=== PATIENT | female | born 1995 | race Caucasian/White ===

== ENCOUNTER 2016-08-24 15:13 | Emergency (ER) | payer SELFPAY ==
[2016-08-24] MEDS ORDERED: NS 0.9% 1000 ML* 1,000 ML IV ONE (15:25)
[2016-08-24 16:52] LABS: ALT 12 U/L (7-52); AST 16 U/L (13-39); Albumin 4.2 g/dL (3.2-5.2); Alkaline Phosphatase 54 U/L (34-104); Anion Gap 4 mmol/L (2-11); BUN/Creatinine Ratio 14.5 (8-20); Blood Urea Nitrogen 11 mg/dL (6-24); CO2 Carbon Dioxide 23 mmol/L (22-32); Calcium 9.4 mg/dL (8.6-10.3); Chloride 108 mmol/L (101-111); EGFR African American 122.4 (>60); EGFR Non-African American 95.2 (>60); Glucose 84 mg/dL (70-100); Hematocrit 40 % (35-47); Hemoglobin 13.3 g/dl (12.0-16.0); Mean Corpuscular HGB Conc 33 g/dl (31-36); Mean Corpuscular Hemoglobin 30 pg (27-31); Mean Corpuscular Volume 91 fL (80-97); Mean Platelet Volume 9 um3 (7.4-10.4); Potassium 3.8 mmol/L (3.5-5.0); Red Blood Count 4.41 10^6/ul (4.0-5.4); Red Cell Distribution Width 13 % (10.5-15); Sodium 135 mmol/L (133-145); Total Protein 8.2 g/dL (6.4-8.9); White Blood Count 8.4 10^3/ul (3.5-10.8)
[2016-08-24 17:35] LABS: Urine Bacteria Absent (Absent); Urine Bilirubin Negative (Negative); Urine Glucose Negative (Negative); Urine Nitrite Negative (Negative)
[2016-08-24] MEDS ORDERED: Nitrofurantoin Macrocrystals* 100 MG CAP PO ONE (17:55)
--- NOTE | 2016-08-24 18:07 | ED ---
Jose Garrido Adam, scribed for Cece Armendariz MD on 08/24/16 at 1527 . Syncope/Near Syncope - HPI Summary HPI Summary: Pt is a 20 year old female presenting after an episode of syncope. She states that she fainted after taking a shower at 13:15 this afternoon. She states that her boyfriend found her unconscious slumped over the toilet 45 minutes after she lost consciousness. She had felt dizzy while she was in the shower and she felt tired after she regained consciousness. Pt states that she has had similar episodes involving lightheadedness and darkening vision but has never had syncope with LOC before. She denies CP, HUERTA, and urinary/bowel sx. She denies any PMHx, surgical Hx, or FMHx. No PMHx or FMHx of epilepsy. urine concerning for uti given fainting will start abx - History Of Current Complaint Chief Complaint: EDSyncope Time Seen by Provider: 08/24/16 15:24 Hx Obtained From: Patient Onset/Duration: Sudden Onset, Resolved Timing: Intermittent Episode Lasting - Minutes Context: Unwitnessed, Loss Of Consciousness Activity At Onset: Other - Stepping out of shower Aggravating Factor(s): Other - Dizziness in shower Alleviating Factor(s): Spontaneous Resolution Associated Signs And Symptoms: Dizzy - Allergies/Home Medications Allergies/Adverse Reactions: Allergies Allergy/AdvReac Type Severity Reaction Status Date / Time Diphenhydramine Allergy Severe Rash Verified 08/24/16 15:29 [From Benadryl] PMH/Surg Hx/FS Hx/Imm Hx Previously Healthy: Yes Endocrine/Hematology History: Denies: Hx Diabetes, Hx Thyroid Disease Cardiovascular History: Denies: Hx Congestive Heart Failure, Hx Hypertension Respiratory History: Denies: Hx Asthma, Hx Chronic Obstructive Pulmonary Disease (COPD) GI History: Denies: Hx Ulcer History: Denies: Hx Renal Disease Infectious Disease History: No Infectious Disease History: Denies: Hx Hepatitis, Hx Human Immunodeficiency Virus (HIV), Traveled Outside the US in Last 30 Days - Family History Known Family History: Positive: None, Other - Negative: Epilepsy - Social History Occupation: Employed Full-time Lives: Alone Alcohol Use: None Hx Substance Use: No Substance Use Type: Reports: None Hx Tobacco Use: No Smoking Status (MU): Never Smoked Tobacco Review of Systems Negative: Fever Negative: Chest Pain Genitourinary: Negative Neurological: Other - Dizziness Positive: Syncope. Negative: Headache All Other Systems Reviewed And Are Negative: Yes Physical Exam Triage Information Reviewed: Yes Vital Signs On Initial Exam: Initial Vitals Temp Pulse Resp BP Pulse Ox 97.6 F 48 16 113/56 100 08/24/16 15:18 08/24/16 15:18 08/24/16 15:18 08/24/16 15:18 08/24/16 15:18 Vital Signs Reviewed: Yes Appearance: Positive: Well-Appearing, No Pain Distress Skin: Positive: Warm, Skin Color Reflects Adequate Perfusion, Dry Eyes: Positive: EOMI, NEHEMIAS ENT: Positive: Pharynx normal, TMs normal Neck: Positive: Supple, Nontender Respiratory/Lung Sounds: Positive: Clear to Auscultation, Breath Sounds Present. Negative: Rales, Rhonchi, Wheezes Cardiovascular: Positive: RRR. Negative: Murmur, Rub Abdomen Description: Positive: Nontender, Soft. Negative: Distended, Guarding Bowel Sounds: Positive: Present Musculoskeletal: Positive: Strength/ROM Intact. Negative: Edema Left, Edema Right Neurological: Positive: Sensory/Motor Intact, Alert, Oriented to Person Place, Time, CN Intact II-III Psychiatric: Positive: Affect/Mood Appropriate Diagnostics - Vital Signs Vital Signs Temp Pulse Resp BP Pulse Ox 08/24/16 15:18 97.6 F 48 16 113/56 100 - Laboratory Lab Results: Lab Results 08/24/16 08/24/16 08/24/16 Range/Units 16:25 16:25 17:15 WBC 8.4 (3.5-10.8) 10^3/ul RBC 4.41 (4.0-5.4) 10^6/ul Hgb 13.3 (12.0-16.0) g/dl Hct 40 (35-47) % MCV 91 (80-97) fL MCH 30 (27-31) pg MCHC 33 (31-36) g/dl RDW 13 (10.5-15) % Plt Count 219 (150-450) 10^3/ul MPV 9 (7.4-10.4) um3 Neut % (Auto) 78.9 (38-83) % Lymph % (Auto) 14.4 L (25-47) % [place] % (Auto) 5.1 (1-9) % Eos % (Auto) 1.2 (0-6) % Baso % (Auto) 0.4 (0-2) % Absolute Neuts (auto) 6.6 (1.5-7.7) 10^3/ul Absolute Lymphs (auto) 1.2 (1.0-4.8) 10^3/ul Absolute Monos (auto) 0.4 (0-0.8) 10^3/ul Absolute Eos (auto) 0.1 (0-0.6) 10^3/ul Absolute Basos (auto) 0 (0-0.2) 10^3/ul Absolute Nucleated RBC 0 10^3/ul Nucleated RBC % 0 Sodium 135 (133-145) mmol/L Potassium 3.8 (3.5-5.0) mmol/L Chloride 108 (101-111) mmol/L Carbon Dioxide 23 (22-32) mmol/L Anion Gap 4 (2-11) mmol/L BUN 11 (6-24) mg/dL Creatinine 0.76 (0.51-0.95) mg/dL Est GFR ( Amer) 122.4 (>60) Est GFR (Non-Af Amer) 95.2 (>60) BUN/Creatinine Ratio 14.5 (8-20) Glucose 84 (70-100) mg/dL Calcium 9.4 (8.6-10.3) mg/dL Total Bilirubin 0.40 (0.2-1.0) mg/dL AST 16 (13-39) U/L ALT 12 (7-52) U/L Alkaline Phosphatase 54 (34-104) U/L Total Protein 8.2 (6.4-8.9) g/dL Albumin 4.2 (3.2-5.2) g/dL Globulin 4.0 (2-4) g/dL Albumin/Globulin Ratio 1.1 (1-3) Beta HCG, Quant < 0.60 mIU/mL Urine Color [place] Urine Appearance Cloudy Urine pH 5.0 (5-9) Ur Specific [place] 1.028 (1.010-1.030) Urine Protein 2+(100 mg/dl) H (Negative) Urine Ketones Negative (Negative) Urine Blood 3+ H (Negative) Urine Nitrate Negative (Negative) Urine Bilirubin Negative (Negative) Urine Urobilinogen Negative (Negative) Ur Leukocyte Esterase 1+ H (Negative) Urine WBC (Auto) 2+(11-20/hpf) H (Absent) Urine RBC (Auto) 3+(>10/hpf) H (Absent) Ur Squamous Epith Cells Present H (Absent) Urine Bacteria Absent (Absent) Urine Glucose Negative (Negative) Result Diagrams: 08/24/16 16:25 08/24/16 16:25 Lab Statement: Any lab studies that have been ordered have been reviewed, and results considered in the medical decision making process. - EKG 15:26 Cardiac Rate: Bradycardia - 46 BPM EKG Rhythm: Sinus Bradycardia Course/Dx - Diagnoses Provider Diagnoses: Syncope, UTI (urinary tract infection) Discharge - Discharge Plan Condition: Stable Disposition: HOME Prescriptions: Nitrofurantoin Monohyd Macro [Macrobid] 100 mg PO BID #8 cap Patient Education Materials: Syncope (ED), Urinary Tract Infection in Women (ED ) Referrals: Kaur Minaya RN [Primary Care Provider] - Additional Instructions: Follow up with Kaur Mcdaniels. The documentation as recorded by the Jose garcia Adam accurately reflects the service I personally performed and the decisions made by , Cece Armendariz MD.
[2016-08-24 18:35] VITALS: BP 120/62
== END 2016-08-24 18:34 | disposition home or self-care (01) ==
LOC: ED 15:13
DX: R55 Syncope and collapse (principal); N39.0 Urinary tract infection, site not specified; R42 Dizziness and giddiness
CPT/HCPCS: 36415; 80053; 81003; 81015; 84702; 85025; 87086; 93005; 99283; A9270-GY

== ENCOUNTER 2016-08-26 21:22 | Emergency (ER) | payer SELFPAY ==
[2016-08-26 21:34] VITALS: BP 110/57
[2016-08-26] MEDS ORDERED: Tetan/Diph/Pertus SYR(Tdap)* 0.5 ML SYR(BOOSTRIX) use SYR IM ONE (22:12)
[2016-08-26] MEDS ORDERED: Doxycycline (NF) 100 MG TAB PO ONE (22:13)
--- NOTE | 2016-08-27 03:36 | ED ---
Edilson Garrido Rebecca, scribed for Ayo Deshpande on 08/26/16 at 2151 . Bite Injury/Animal - HPI Summary HPI Summary: Pt is a 20 y/o F who presents to ED c/o tick bite. Pt presents with the tick still attached to the L shoulder. Bite occurred at 2100 tonight. Sx aggravated and alleviated by nothing. Denies any other sx including any pain. Unsure of last Tetanus date. - History of Current Complaint Chief Complaint: EDAnimalBite Stated Complaint: TICK ON SHOULDER Time Seen by Provider: 08/26/16 21:45 Hx Obtained From: Patient Hx Last Menstrual Period: 03/01 Onset of Injury: Happened hours ago - 1 hour ago Type of Bite: Wild Animal - Tick Severity Currently: None Pain Intensity: 0 Pain Scale Used: 0-10 Numeric Aggravating Factor(s): Nothing Alleviating Factor(s): Nothing Associated Signs And Symptoms: Positive: Negative - Allergies/Home Medications Allergies/Adverse Reactions: Allergies Allergy/AdvReac Type Severity Reaction Status Date / Time Diphenhydramine Allergy Severe Rash Verified 08/24/16 15:29 [From Benadryl] PMH/Surg Hx/FS Hx/Imm Hx Previously Healthy: Yes Endocrine/Hematology History: Denies: Hx Diabetes, Hx Thyroid Disease Cardiovascular History: Denies: Hx Congestive Heart Failure, Hx Hypertension Respiratory History: Denies: Hx Asthma, Hx Chronic Obstructive Pulmonary Disease (COPD) GI History: Denies: Hx Ulcer History: Denies: Hx Renal Disease Infectious Disease History: No Infectious Disease History: Denies: Hx Hepatitis, Hx Human Immunodeficiency Virus (HIV), Traveled Outside the US in Last 30 Days - Family History Known Family History: Positive: Other - Negative: Epilepsy - Social History Alcohol Use: None Hx Substance Use: No Substance Use Type: Reports: None Hx Tobacco Use: No Smoking Status (MU): Never Smoked Tobacco Review of Systems Positive: Other - Denies any pain Positive: Other - Tick in the L shoulder All Other Systems Reviewed And Are Negative: Yes Physical Exam Triage Information Reviewed: Yes Vital Signs On Initial Exam: Initial Vitals Temp Pulse Resp BP Pulse Ox 98.3 F 59 16 110/57 99 08/26/16 21:30 08/26/16 21:30 08/26/16 21:30 08/26/16 21:30 08/26/16 21:30 Vital Signs Reviewed: Yes Appearance: Positive: Well-Appearing, No Pain Distress Skin: Positive: Warm, Skin Color Reflects Adequate Perfusion, Dry, Other - Tick in the L shoulder (removed with tick remover) Head/Face: Positive: Normal Head/Face Inspection Eyes: Positive: EOMI, NEHEMIAS ENT: Positive: Normal ENT inspection Neck: Positive: Supple, Nontender Respiratory/Lung Sounds: Positive: Clear to Auscultation, Breath Sounds Present Cardiovascular: Positive: RRR, Pulses are Symmetrical in both Upper and Lower Extremities Abdomen Description: Positive: Nontender, Soft Bowel Sounds: Positive: Present Musculoskeletal: Positive: Normal, Strength/ROM Intact Neurological: Positive: Normal, Sensory/Motor Intact, Alert, Oriented to Person Place, Time Diagnostics - Vital Signs Vital Signs Temp Pulse Resp BP Pulse Ox 08/26/16 21:30 98.3 F 59 16 110/57 99 - Laboratory Lab Statement: Any lab studies that have been ordered have been reviewed, and results considered in the medical decision making process. Bite Injury Course/Dx - Course Assessment/Plan: Pt is a 20 y/o F who presents to ED with a tick in her L shoulder since 1 hour [employer]. Denies any other sx. Tick is removed with tick removers. Unsure of last Tetanus vaccine. Pt will be D/C to home with a dx of tick bite. - Diagnoses Provider Diagnosis: Tick bite Discharge - Discharge Plan Condition: Stable Disposition: HOME Patient Education Materials: Tick Bite (ED) Referrals: Arslan ALVAREZ PHARMACY AIDE,Kaur [Primary Care Provider] - 3 Days (Follow up with your primary care physician in the next 3 days. ) The documentation as recorded by the Edilson garcia Rebecca accurately reflects the service I personally performed and the decisions made by Jeramy chatman Emmanuel.
== END 2016-08-26 22:30 | disposition home or self-care (01) ==
LOC: ED 21:22
DX: S40.262A Insect bite (nonvenomous) of left shoulder, initial encounter (principal); W57.XXXA Bitten or stung by nonvenomous insect and other nonvenomous arthropods, initial encounter; Y93.9 Activity, unspecified; Y92.9 Unspecified place or not applicable; Y99.9 Unspecified external cause status
CPT/HCPCS: 90471; 99282

== ENCOUNTER 2016-09-16 06:36 | Emergency (ER) | payer SELFPAY ==
[2016-09-16] MEDS ORDERED: Ondansetron INJ* 2 MG/ML VIAL IV ONE (06:53)
[2016-09-16] MEDS ORDERED: NS 0.9% 1000 ML* 3,000 ML IV ONE (06:53)
[2016-09-16 07:13] LABS: Hematocrit 39 % (35-47); Hemoglobin 13.3 g/dl (12.0-16.0); Mean Corpuscular HGB Conc 34 g/dl (31-36); Mean Corpuscular Hemoglobin 31 pg (27-31); Mean Corpuscular Volume 89 fL (80-97); Mean Platelet Volume 8 um3 (7.4-10.4); Red Blood Count 4.35 10^6/ul (4.0-5.4); Red Cell Distribution Width 14 % (10.5-15); White Blood Count 5.2 10^3/ul (3.5-10.8)
[2016-09-16 07:30] LABS: ALT 12 U/L (7-52); AST 14 U/L (13-39); Albumin 3.9 g/dL (3.2-5.2); Alkaline Phosphatase 54 U/L (34-104); Anion Gap 7 mmol/L (2-11); BUN/Creatinine Ratio 17.9 (8-20); Blood Urea Nitrogen 14 mg/dL (6-24); C Reactive Protein 1.72 mg/L (< 5.00); CO2 Carbon Dioxide 23 mmol/L (22-32); Calcium 8.9 mg/dL (8.6-10.3); Chloride 106 mmol/L (101-111); EGFR African American 118.8 (>60); EGFR Non-African American 92.4 (>60); Globulin 3.7 g/dL (2-4); Glucose 95 mg/dL (70-100); Lipase 41 U/L (11.0-82.0); Potassium 3.9 mmol/L (3.5-5.0); Sodium 136 mmol/L (133-145); Total Protein 7.6 g/dL (6.4-8.9)
[2016-09-16 11:14] VITALS: BP 93/53
--- NOTE | 2016-09-19 09:41 | ED ---
Albina Garrido Matthew, scribed for Gómez Charles MD on 09/16/16 at 0747 . Abdominal Pain/Female - HPI Summary HPI Summary: A 20 y/o female presents to the ED diffuse abdominal pain with eating since 3 days ago. The pain is rated 5/10 in severity, and described as a squeezing pain. Associated symptoms include vomiting, diarrhea - watery, and chills. The patient denies diaphoresis, blood w/ stool, dizziness and lightheadedness. She is unsure if she's had a fever. Hx of syncope while showering about a month ago. The patient works at [employer]. The patient's co-workers have been ill recently. - History of Current Complaint Chief Complaint: EDNauseaVomitDiarrh Stated Complaint: VOMITING Time Seen by Provider: 09/16/16 07:36 Hx Obtained From: Patient Hx Last Menstrual Period: 03/01 ?: No Timing: Constant Severity Initially: Moderate Severity Currently: Moderate Pain Intensity: 5 Pain Scale Used: 0-10 Numeric Location: Diffuse Radiates: No Character: Other: - Squeezing Aggravating Factor(s): Food Alleviating Factor(s): Nothing Associated Signs and Symptoms: Positive: Nausea, Vomiting, Diarrhea. Negative: Diaphoresis, Blood in Stool, Urinary Symptoms Allergies/Adverse Reactions: Allergies Allergy/AdvReac Type Severity Reaction Status Date / Time Diphenhydramine Allergy Severe Rash Verified 08/24/16 15:29 [From Benadryl] PMH/Surg Hx/FS Hx/Imm Hx Endocrine/Hematology History: Denies: Hx Diabetes, Hx Thyroid Disease Cardiovascular History: Denies: Hx Congestive Heart Failure, Hx Hypertension Respiratory History: Denies: Hx Asthma, Hx Chronic Obstructive Pulmonary Disease (COPD) GI History: Denies: Hx Ulcer History: Denies: Hx Renal Disease Infectious Disease History: No Infectious Disease History: Denies: Hx Hepatitis, Hx Human Immunodeficiency Virus (HIV), Traveled Outside the [place] in Last 30 Days - Family History Known Family History: Positive: Other - Negative: Epilepsy - Social History Alcohol Use: None Hx Substance Use: No Substance Use Type: Reports: None Hx Tobacco Use: No Smoking Status (MU): Never Smoked Tobacco Review of Systems Constitutional: Other Negative: Fever, Skin Diaphoresis Eyes: Negative ENT: Negative Negative: Sore Throat Cardiovascular: Negative Negative: Chest Pain Respiratory: Negative Negative: Shortness Of Breath, Cough Positive: Abdominal Pain - Diffuse, Vomiting, Diarrhea, Nausea Genitourinary: Negative Negative: dysuria, hematuria Musculoskeletal: Negative Negative: Myalgia, Edema Skin: Negative Negative: Rash Neurological: Negative Negative: Weakness Psychological: Normal All Other Systems Reviewed And Are Negative: Yes Physical Exam Triage Information Reviewed: Yes Vital Signs On Initial Exam: Initial Vitals Temp Pulse Resp BP Pulse Ox 96.9 F 59 18 114/57 99 09/16/16 06:41 09/16/16 06:41 09/16/16 06:41 09/16/16 06:41 09/16/16 06:41 Vital Signs Reviewed: Yes Appearance: Positive: Well-Appearing, Well-Nourished. Negative: No Pain Distress Skin: Positive: Warm, Dry Head/Face: Positive: Other - Normocephalic; Atraumatic Eyes: Positive: Conjunctiva Clear ENT: Positive: Normal ENT inspection Neck: Positive: Other: - Rull ROM Respiratory/Lung Sounds: Positive: Other - Normal Effort. Negative: Rales, Rhonchi, Stridor, Tracheal Deviation, Wheezes Cardiovascular: Positive: RRR, Other - Heart sounds normal; Intact distal pulses ; The pedal pulses are 2+ and symmetric. Radial pulses are 2+ and symmetric.. Negative: Murmur Abdomen Description: Positive: Nontender, Soft, Other: - No Rebound. Negative: Distended, Guarding Bowel Sounds: Positive: Present Musculoskeletal: Negative: Edema Left, Edema Right Neurological: Positive: Alert, Oriented to Person Place, Time Psychiatric: Positive: Affect/Mood Appropriate - [place] Coma Scale Coma Scale Total: 15 Diagnostics - Vital Signs Vital Signs Temp Pulse Resp BP Pulse Ox 09/16/16 07:30 61 86/48 97 09/16/16 07:19 58 81/43 98 09/16/16 07:14 54 98 09/16/16 07:13 86/41 09/16/16 06:41 96.9 F 59 18 114/57 99 - Laboratory Lab Results: Lab Results 09/16/16 09/16/16 09/16/16 Range/Units 06:58 06:58 06:58 WBC 5.2 (3.5-10.8) 10^3/ul RBC 4.35 (4.0-5.4) 10^6/ul Hgb 13.3 (12.0-16.0) g/dl Hct 39 (35-47) % MCV 89 (80-97) fL MCH 31 (27-31) pg MCHC 34 (31-36) g/dl RDW 14 (10.5-15) % Plt Count 241 (150-450) 10^3/ul MPV 8 (7.4-10.4) um3 Neut % (Auto) 51.6 (38-83) % Lymph % (Auto) 33.5 (25-47) % [place] % (Auto) 9.1 H (1-9) % Eos % (Auto) 4.2 (0-6) % Baso % (Auto) 1.6 (0-2) % Absolute Neuts (auto) 2.7 (1.5-7.7) 10^3/ul Absolute Lymphs (auto) 1.7 (1.0-4.8) 10^3/ul Absolute Monos (auto) 0.5 (0-0.8) 10^3/ul Absolute Eos (auto) 0.2 (0-0.6) 10^3/ul Absolute Basos (auto) 0.1 (0-0.2) 10^3/ul Absolute Nucleated RBC 0 10^3/ul Nucleated RBC % 0.1 Sodium 136 (133-145) mmol/L Potassium 3.9 (3.5-5.0) mmol/L Chloride 106 (101-111) mmol/L Carbon Dioxide 23 (22-32) mmol/L Anion Gap 7 (2-11) mmol/L BUN 14 (6-24) mg/dL Creatinine 0.78 (0.51-0.95) mg/dL Est GFR ( Amer) 118.8 (>60) Est GFR (Non-Af Amer) 92.4 (>60) BUN/Creatinine Ratio 17.9 (8-20) Glucose 95 (70-100) mg/dL Lactic Acid 0.7 (0.5-2.0) mmol/L Calcium 8.9 (8.6-10.3) mg/dL Total Bilirubin 0.30 (0.2-1.0) mg/dL AST 14 (13-39) U/L ALT 12 (7-52) U/L Alkaline Phosphatase 54 (34-104) U/L C-Reactive Protein 1.72 (< 5.00) mg/L Total Protein 7.6 (6.4-8.9) g/dL Albumin 3.9 (3.2-5.2) g/dL Globulin 3.7 (2-4) g/dL Albumin/Globulin Ratio 1.1 (1-3) Lipase 41 (11.0-82.0) U/L Beta HCG, Quant < 0.60 mIU/mL Result Diagrams: 09/16/16 06:58 09/16/16 06:58 Lab Statement: Any lab studies that have been ordered have been reviewed, and results considered in the medical decision making process. Abdominal Pain Fem Course/Dx - Course Course Of Treatment: A 20 y/o female presents to the ED diffuse abdominal pain with eating since 3 days ago. The pain is rated 5/10 in severity, and described as a squeezing pain. Associated symptoms include vomiting, diarrhea - watery, and chills. The patient denies diaphoresis, blood w/ stool, dizziness and lightheadedness. Labs were reviewed. In the ED course, she was given 3L IV fluids and Zofran. She will be discharged home and follow-up with her PCP before returning to work. - Diagnoses Provider Diagnoses: GASTROENTERITIS Discharge - Discharge Plan Condition: Stable Disposition: HOME Prescriptions: Ondansetron ODT TAB* [Zofran 4 MG Odt TAB*] 4 mg PO Q8H PRN #9 tab.odt PRN Reason: Nausea/Vomiting Patient Education Materials: Gastroenteritis (ED) Forms: *Work Release Referrals: Kaur Minaay RN [Primary Care Provider] - 3 Days Additional Instructions: Please follow-up with your primary care physician in 3 days. You need to be cleared by your primary care physician before returning to work. Return to the emergency department for changing or worsening symptoms. The documentation as recorded by the Albina garcia Matthew accurately reflects the service I personally performed and the decisions made by me, Gómez Charles MD.
== END 2016-09-16 10:23 | disposition home or self-care (01) ==
LOC: ED 06:36
DX: K52.9 Noninfective gastroenteritis and colitis, unspecified (principal); R11.2 Nausea with vomiting, unspecified; R19.7 Diarrhea, unspecified; R10.9 Unspecified abdominal pain
CPT/HCPCS: 36415; 80053; 83605; 83690; 84702; 85025; 86140; 96374; 96375; 99282; J2405

== ENCOUNTER 2018-07-14 20:55 | Emergency (ER) | payer BC, OTHER ==
[2018-07-14] MEDS ORDERED: Famotidine IV* 10 MG/ML 2 ML (20 mg) IV SLOW PU ONE (21:24)
[2018-07-14] MEDS ORDERED: Metoclopramide IV* 5 MG/ML 2 ML VIAL IV SLOW PU ONE (21:24)
--- NOTE | 2018-07-14 21:35 | ED ---
- HPI Summary HPI Summary: A 22 y/o female accompanied by family presents to the ED c/o vomiting for the past week. As per triage, "Pt is 5 weeks , unable to keep anything down ". According to the family, the patient is 5 weeks and cannot keep anything down. She has been vomiting for the past week. As per patient, her LKMP was June 04 2018. She confirmed the with a test and she went to her primary care provider. This is the patient's 2nd , she had a miscarriage in 2010. Patient noted that she had some "spotting" vaginal bleeding when she wiped with toilet paper. Patient further noted that her abdominal is diffusely sensitive. Patient has a OB appointment on August 09, 2018. Patient is blood type AB-. - History of Current Complaint Chief Complaint: EDOBProblems Stated Complaint: 5 WKS PREG/VOMITING Time Seen by Provider: 07/14/18 21:17 Hx Obtained From: Patient, Family/Emergency Doctor - FAMILY Chief Complaint: Other: - VOMITING FOR PAST WEEK. Onset/Duration: Started Days Ago, Still Present Timing: Intermittent Current Severity: None Pain Intensity: 0 Location of Pain: None Character: None Aggravating Factors: Nothing Alleviating Factors: Nothing Associated Signs and Symptoms: Positive: Negative - Assessment Hx Now: No - Allergies/Home Medications Allergies/Adverse Reactions: Allergies Allergy/AdvReac Type Severity Reaction Status Date / Time diphenhydramine Allergy Rash Verified 07/14/18 22:07 [From Benadryl] Home Medications: Home Medications [id number]/Iron Fum/Folic/Docusate [ 19] 1 tab PO DAILY 07/14/18 [History Confirmed 07/14/18] PMH/Surg Hx/FS Hx/Imm Hx Endocrine/Hematology History: Denies: Hx Diabetes, Hx Thyroid Disease Cardiovascular History: Denies: Hx Congestive Heart Failure, Hx Hypertension Respiratory History: Denies: Hx Asthma, Hx Chronic Obstructive Pulmonary Disease (COPD) GI History: Denies: Hx Ulcer History: Denies: Hx Renal Disease - Surgical History Surgery Procedure, Year, and Place: none Infectious Disease History: No Infectious Disease History: Denies: Hx Hepatitis, Hx Human Immunodeficiency Virus (HIV), Traveled Outside the [place] in Last 30 Days - Family History Known Family History: Positive: Other - Negative: Epilepsy - Social History Alcohol Use: None Hx Substance Use: No Substance Use Type: Reports: None Hx Tobacco Use: No Smoking Status (MU): Never Smoked Tobacco Review of Systems Negative: Fever Positive: Abdominal Pain Positive: discharge - BLEEDING All Other Systems Reviewed And Are Negative: Yes Physical Exam - Summary Physical Exam Summary: VITAL SIGNS: Reviewed. GENERAL: Patient is a well-developed and nourished female who is lying comfortable in the stretcher. Patient is not in any acute respiratory distress. HEAD AND FACE: No signs of trauma. No ecchymosis, hematomas or skull depressions. No sinus tenderness. EYES: PERRLA, EOMI x 2, No injected conjunctiva, no nystagmus. EARS: Hearing grossly intact. Ear canals and tympanic membranes are within normal limits. MOUTH: Oropharynx within normal limits. NECK: Supple, trachea is midline, no adenopathy, no JVD, no carotid bruit, no c- spine tenderness, neck with full ROM. CHEST: Symmetric, no tenderness at palpation LUNGS: Clear to auscultation bilaterally. No wheezing or crackles. CVS: Regular rate and rhythm, S1 and S2 present, no murmurs or gallops appreciated. ABDOMEN: Soft, lower abdominal tenderness. No signs of distention. No rebound no guarding, and no masses palpated. Bowel sounds are normal. EXTREMITIES: FROM in all major joints, no edema, no cyanosis or clubbing. NEURO: Alert and oriented x 3. No acute neurological deficits. Speech is normal and follows commands. SKIN: Dry and warm - Physical Exam Triage Information Reviewed: Yes Vital Signs Reviewed: Yes Diagnostics - Vital Signs Vital Signs Temp Pulse Resp BP Pulse Ox 07/14/18 20:56 98.7 F 64 16 109/49 100 - Laboratory Result Diagrams: 07/14/18 20:47 07/14/18 20:47 Lab Statement: Any lab studies that have been ordered have been reviewed, and results considered in the medical decision making process. - Ultrasound No standard instances Ultrasound Interpretation Completed By: Radiologist Summary of Ultrasound Findings: TRANSVAGINAL US: Viable intrauterine with an ultrasound age of 6 weeks 0 days which correlates to an DAISY of 2018 which will be used for the clinical dates. ED PHYSICIAN REVIEWED THIS RADIOLOGY REPORT. Course/Dx - Course Course Of Treatment: A 22 y/o female accompanied by family presents to the ED c/ o vomiting for the past week. Physical examination findings significant for lower abdominal tenderness. A Transvaginal US revealed viable intrauterine with an ultrasound age of 6 weeks 0 days which correlates to an DAISY of 03/06/2019 which will be used for the clinical dates. No significant laboratory abnormalities were found. In the ED course, the patient received Reglan, Compazine, Vitamin B6, and Pepcid. Patient will be discharged with a diagnosis of vomiting, threatened miscarriage, and vomiting. Patient is to follow up with OB in 1-2 days. Patient is to return to ED for any new or worsening symptoms. Patient is agreeable with this plan. - Diagnoses Provider Diagnoses: Threatened miscarriage, Vomiting, - Provider Notifications Discussed Care Of Patient With: Radha Bowman Time Discussed With Above Provider: 23:58 Instructed by Provider To: Other - Recommends discharging patient with B6 and Compazine Discharge - Sign-Out/Discharge Documenting (check all that apply): Patient Departure - DISCHARGE - Discharge Plan Condition: Stable Disposition: HOME Prescriptions: Prochlorperazine SUPP* [Compazine Supp*] 25 mg .SEE ORDER Q6H PRN #20 supp PRN Reason: Nausea/Vomiting Pyridoxine HCl (Vitamin B6) [Vitamin B-6] 25 mg PO TID #30 tab Forms: *Work Release Referrals: Arslan MONCADA,Kaur [Nurse Practitioner] - 2 Days Radha Bowman MD [Medical Doctor] - 2 Days Additional Instructions: FOLLOW UP WITH OB IN 1-2 DAYS. RETURN TO ED FOR ANY NEW OR WORSENING SYMPTOMS. - Attestation Statements Document Initiated by Scribe: Yes Documenting Scribe: Uziel Cash Provider For Whom Scribe is Documenting (Include Credential): Jonh Cason MD Scribe Attestation: Uziel Garrido, scribed for Jonh Cason MD on 07/15/18 at 0047. Status of Scribe Document: Ready
[2018-07-14] MEDS: Lactated Ringers 1000 ML Bag* 1,000 ML IV SCH ×2 (21:40→21:41)
[2018-07-14 21:50] LABS: ABS Basophils 0 10^3/ul (0-0.2); ABS Eosinophils 0 10^3/ul (0-0.6); ABS Lymphocytes 1.4 10^3/ul (1.0-4.8); ABS Monocytes 0.5 10^3/ul (0-0.8); ABS Neutrophils 7.5 10^3/ul (1.5-7.7); ABS Nucleated RBC 0 10^3/ul; Eosinophil % 0.2 %; Hematocrit 39 % (35-47); Hemoglobin 13.5 g/dl (12.0-16.0); Lymphocyte % 14.5 %; Mean Corpuscular HGB Conc 34 g/dl (31-36); Mean Corpuscular Hemoglobin 31 pg (27-31); Mean Corpuscular Volume 91 fL (80-97); Mean Platelet Volume 8.1 fL (7.4-10.4); Nucleated Red Blood Cells % 0; Platelet Count 255 10^3/ul (150-450); Red Blood Count 4.34 10^6/ul (4.00-5.40); Red Cell Distribution Width 14 % (10.5-15); White Blood Count 9.4 10^3/ul (3.5-10.8)
[2018-07-14 22:04] LABS: Albumin 4.4 g/dL (3.2-5.2); Albumin/Globulin Ratio 1.4 (1-3); BUN/Creatinine Ratio 12.9 (8-20); Calcium 9.6 mg/dL (8.6-10.3); EGFR African American 143.1 (>60); EGFR Non-African American 118.3 (>60); Globulin 3.2 g/dL (2-4); Potassium 3.5 mmol/L (3.5-5.0); Total Bilirubin 0.6 mg/dL (0.2-1.0); Total Protein 7.6 g/dL (6.4-8.9)
[2018-07-14] MEDS ORDERED: Pyridoxine TAB* 50 MG PO ONE (23:58)
[2018-07-14] MEDS ORDERED: PROCHLORPERAZINE INJ 5 MG/ML 2 ML VIAL IV ONE (23:59)
[2018-07-15 00:51] VITALS: BP 109/60
[2018-07-15] MEDS ORDERED: RHO D Immune Globulin (HUMAN)* 300 MCG = 1,500 I.U. INJ IM ONE (01:00)
== END 2018-07-15 00:52 | disposition home or self-care (01) ==
LOC: ED 20:55
DX: O20.0 Threatened abortion (principal); Z3A.01 Less than 8 weeks gestation of pregnancy; O21.9 Vomiting of pregnancy, unspecified
CPT/HCPCS: 36415; 76817; 80053; 84702; 85025; 86850; 86900; 86901; 96374; 96375; 99284; A9270-GY; J0780; J2765; J2790

== ENCOUNTER 2018-07-19 10:20 | Emergency (ER) | payer OTHER ==
[2018-07-19] MEDS ORDERED: Famotidine IV* 10 MG/ML 2 ML (20 mg) IV SLOW PU ONE (11:01)
[2018-07-19] MEDS ORDERED: NS 0.9% 1000 ML* 1,000 ML IV ONE (11:01)
[2018-07-19] MEDS ORDERED: PROCHLORPERAZINE INJ 5 MG/ML 2 ML VIAL IV ONE (11:02)
[2018-07-19 11:21] LABS: ABS Basophils 0 10^3/ul (0-0.2); ABS Eosinophils 0.1 10^3/ul (0-0.6); ABS Lymphocytes 1.2 10^3/ul (1.0-4.8); ABS Monocytes 0.4 10^3/ul (0-0.8); ABS Neutrophils 5.8 10^3/ul (1.5-7.7); ABS Nucleated RBC 0 10^3/ul; Eosinophil % 0.8 %; Hematocrit 41 % (35-47); Hemoglobin 14.4 g/dl (12.0-16.0); Lymphocyte % 16.2 %; Mean Corpuscular HGB Conc 35 g/dl (31-36); Mean Corpuscular Hemoglobin 32 pg (27-31); Mean Corpuscular Volume 91 fL (80-97); Mean Platelet Volume 7.7 fL (7.4-10.4); Nucleated Red Blood Cells % 0; Platelet Count 245 10^3/ul (150-450); Red Blood Count 4.56 10^6/ul (4.00-5.40); Red Cell Distribution Width 14 % (10.5-15); White Blood Count 7.4 10^3/ul (3.5-10.8)
[2018-07-19 11:50] LABS: BUN/Creatinine Ratio 17.5 (8-20); Calcium 9.6 mg/dL (8.6-10.3); EGFR Non-African American 116.1 (>60); Globulin 3.9 g/dL (2-4); Magnesium 1.9 mg/dL (1.9-2.7); Potassium 3.7 mmol/L (3.5-5.0); Total Bilirubin 0.6 mg/dL (0.2-1.0); Total Protein 7.9 g/dL (6.4-8.9)
--- NOTE | 2018-07-19 12:26 | ED ---
- HPI Summary HPI Summary: ongoing n/v w/ hyperemiesis gravidarum. Has not been able to take compazine as her insurance did not cover it. PCP won't see her and OB can't get her in for many weeks. Still spotting with wiping only - otherwise not change in this and no new ab pain. - History of Current Complaint Chief Complaint: EDNauseaVomitDiarrh Stated Complaint: 6WKS PREG/BLEEDING/VOMITING Time Seen by Provider: 07/19/18 10:33 Hx Obtained From: Patient, Family/Operations Plant Attendant - mom, male Pain Intensity: 7 - Assessment Hx Now: No - Allergies/Home Medications Allergies/Adverse Reactions: Allergies Allergy/AdvReac Type Severity Reaction Status Date / Time diphenhydramine Allergy Rash Verified 07/19/18 10:28 [From Benadryl] PMH/Surg Hx/FS Hx/Imm Hx Endocrine/Hematology History: Denies: Hx Diabetes, Hx Thyroid Disease Cardiovascular History: Denies: Hx Congestive Heart Failure, Hx Hypertension Respiratory History: Denies: Hx Asthma, Hx Chronic Obstructive Pulmonary Disease (COPD) GI History: Denies: Hx Ulcer History: Denies: Hx Renal Disease - Surgical History Surgery Procedure, Year, and Place: none Infectious Disease History: No Infectious Disease History: Denies: Hx Hepatitis, Hx Human Immunodeficiency Virus (HIV), Traveled Outside the [place] in Last 30 Days - Family History Known Family History: Positive: None, Other - Negative: Epilepsy - Social History Alcohol Use: None Hx Substance Use: No Substance Use Type: Reports: Marijuana Substance Use Comment - Amount & Last Used: stopped when became Hx Tobacco Use: No Smoking Status (MU): Never Smoked Tobacco Diagnostics - Vital Signs Vital Signs Temp Pulse Resp BP Pulse Ox 07/19/18 10:25 97.6 F 56 16 112/69 100 - Laboratory Lab Results: Lab Results 07/19/18 07/19/18 Range/Units 11:13 11:13 WBC 7.4 (3.5-10.8) 10^3/ul RBC 4.56 (4.00-5.40) 10^6/ul Hgb 14.4 (12.0-16.0) g/dl Hct 41 (35-47) % MCV 91 (80-97) fL MCH 32 H (27-31) pg MCHC 35 (31-36) g/dl RDW 14 (10.5-15) % Plt Count 245 (150-450) 10^3/ul MPV 7.7 (7.4-10.4) fL Neut % (Auto) 77.9 % Lymph % (Auto) 16.2 % [place] % (Auto) 4.8 % Eos % (Auto) 0.8 % Baso % (Auto) 0.3 % Absolute Neuts (auto) 5.8 (1.5-7.7) 10^3/ul Absolute Lymphs (auto) 1.2 (1.0-4.8) 10^3/ul Absolute Monos (auto) 0.4 (0-0.8) 10^3/ul Absolute Eos (auto) 0.1 (0-0.6) 10^3/ul Absolute Basos (auto) 0 (0-0.2) 10^3/ul Absolute Nucleated RBC 0 10^3/ul Nucleated RBC % 0 Sodium 134 L (135-145) mmol/L Potassium 3.7 (3.5-5.0) mmol/L Chloride 104 (101-111) mmol/L Carbon Dioxide 20 L (22-32) mmol/L Anion Gap 10 (2-11) mmol/L BUN 11 (6-24) mg/dL Creatinine 0.63 (0.51-0.95) mg/dL Est GFR ( Amer) 140.5 (>60) Est GFR (Non-Af Amer) 116.1 (>60) BUN/Creatinine Ratio 17.5 (8-20) Glucose 71 (70-100) mg/dL Calcium 9.6 (8.6-10.3) mg/dL Magnesium 1.9 (1.9-2.7) mg/dL Total Bilirubin 0.60 (0.2-1.0) mg/dL AST 13 (13-39) U/L ALT 9 (7-52) U/L Alkaline Phosphatase 46 (34-104) U/L Total Protein 7.9 (6.4-8.9) g/dL Albumin 4.0 (3.2-5.2) g/dL Globulin 3.9 (2-4) g/dL Albumin/Globulin Ratio 1.0 (1-3) Beta HCG, Quant 11126.00 mIU/mL Result Diagrams: 07/19/18 11:13 07/19/18 11:13 Lab Statement: Any lab studies that have been ordered have been reviewed, and results considered in the medical decision making process. Course/Dx - Course Course Of Treatment: HCG more than doubled from her last check 5 days ago. labs WNL otherwise. nausea controlled - tolerated PO liquids and crackers. Insurance covers the following anti-emetics: *metoclopramide. *odansetron. * prochlorperazine. *promethazine. *trimethobenazamide Discharge - Sign-Out/Discharge Documenting (check all that apply): Patient Departure - Discharge Plan Condition: Stable Disposition: HOME Prescriptions: Promethazine TAB* [Phenergan Tab*] 25 mg PO Q6H PRN #30 tab MDD 4 PRN Reason: Nausea Patient Education Materials: Hyperemesis Gravidarum (ED) Referrals: Meagan Fontana NP [Primary Care Provider] - Srinivas Gonzalez MD [Medical Doctor] - Additional Instructions: Use medication as directed to prevent vomiting Stay hydrated with fluids such as water, juice, gingerale, etc Avoid stimulants and diuretics (ie. caffeine, alcohol, etc) Follow-up with PCP and/or OBGYN if you need assistance getting insurance coverage for promethazine (aka "Phenergan") suppositories if you are unable to tolerate oral pills. *If you develop intractable vomiting, diarrhea, or vaginal bleeding with abdominal pain/cramping, return to the ED - Billing Disposition and Condition Condition: STABLE Disposition: Home
[2018-07-19 13:39] VITALS: BP 111/67
== END 2018-07-19 13:39 | disposition home or self-care (01) ==
LOC: ED 10:20
DX: O21.0 Mild hyperemesis gravidarum (principal); Z3A.01 Less than 8 weeks gestation of pregnancy; Z88.8 Allergy status to other drugs, medicaments and biological substances
CPT/HCPCS: 36415; 80053; 83735; 84702; 85025; 96374; 96375; 99283; J0780

== ENCOUNTER → 2018-09-28 15:40 | Emergency (ER) | payer OTHER ==
[~2018-09-28 15:40] MED LIST: Cephalexin CAP* 500 MG PO ONE; Metoclopramide IV* 5 MG/ML 2 ML VIAL IV ONE; NS 0.9% 1000 ML** 1,000 ML IV ONE; Ondansetron INJ* 2 MG/ML VIAL IV ONE
[2018-09-28 19:18] LABS: ABS Basophils 0 10^3/ul (0-0.2); ABS Eosinophils 0 10^3/ul (0-0.6); ABS Lymphocytes 1.5 10^3/ul (1.0-4.8); ABS Monocytes 0.4 10^3/ul (0-0.8); ABS Neutrophils 6.3 10^3/ul (1.5-7.7); ABS Nucleated RBC 0 10^3/ul; Eosinophil % 0.3 %; Hematocrit 39 % (33-41); Hemoglobin 13.4 g/dL (12.0-16.0); Lymphocyte % 18.1 %; Mean Corpuscular HGB Conc 35 g/dL (31-36); Mean Corpuscular Hemoglobin 32 pg (27-31); Mean Corpuscular Volume 92 fL (80-97); Mean Platelet Volume 7.5 fL (7.4-10.4); Nucleated Red Blood Cells % 0; Platelet Count 223 10^3/uL (150-450); Red Cell Distribution Width 14 % (10.5-15); White Blood Count 8.2 10^3/uL (3.5-10.8)
[2018-09-28 19:34] LABS: Albumin 3.9 g/dL (3.2-5.2); BUN/Creatinine Ratio 14.8 (8-20); C Reactive Protein 2.95 mg/L (<8.01); Calcium 9.2 mg/dL (8.6-10.3); EGFR African American 167.8 (>60); EGFR Non-African American 138.7 (>60); Globulin 3.8 g/dL (2-4); Potassium 3.9 mmol/L (3.5-5.0); Total Bilirubin 0.5 mg/dL (0.2-1.0); Total Protein 7.7 g/dL (6.4-8.9)
--- NOTE | 2018-09-28 19:48 | ED ---
- HPI Summary HPI Summary: Patient with history of 17 weeks followed by P[employer] Dr. Carpio in [facility] she was told to come to the ED by her [employer] PLANT SUPERVISOR for further evaluation of sudden onset abdominal cramping and nausea starting last night. No active abdominal cramping here in ED. Patient has active N/V, complains of N /V since onset of with no worsening of symptoms. Denies vaginal discharge, vaginal bleeding, back pain, urinary symptoms, diarrhea, fever, cough , sore throat, CP, SOB. Medical history is none. Patient has GI 2 by mouth, history of prior miscarriage. Patient states blood type is AB-. Patient has existing prescription for Phenergan which she states she has not been taking. Patient states she has been unable to tolerate fluids or food today. - History of Current Complaint Chief Complaint: EDOBProblems Stated Complaint: 17 WEEKS AND CRAMPING PER PT Time Seen by Provider: 09/28/18 17:55 Hx Obtained From: Patient Onset/Duration: Started Hours Ago Timing: Intermittent Severity: Mild Current Severity: Mild Pain Intensity: 4 Location of Pain: Diffuse Character: Cramping Associated Signs and Symptoms: Positive: Nausea, Vomiting - Assessment Hx Now: No - Allergies/Home Medications Allergies/Adverse Reactions: Allergies Allergy/AdvReac Type Severity Reaction Status Date / Time diphenhydramine Allergy Rash Verified 07/19/18 10:28 [From Benadryl] PMH/Surg Hx/FS Hx/Imm Hx Endocrine/Hematology History: Denies: Hx Diabetes, Hx Thyroid Disease Cardiovascular History: Denies: Hx Congestive Heart Failure, Hx Hypertension Respiratory History: Denies: Hx Asthma, Hx Chronic Obstructive Pulmonary Disease (COPD) GI History: Denies: Hx Cirrhosis, Hx Crohn's Disease, Hx Diverticulosis, Hx Gall Bladder Disease, Hx Gastroesophageal Reflux Disease, Hx Gastrointestinal Bleed, Hx Hiatal Hernia, Hx Irritable Bowel, Hx Obstructive Bowel, Hx Ulcer History: Denies: Hx Kidney Infection, Hx Kidney Stones, Hx Renal Disease Sensory History: Denies: Hx Eye Prosthesis Opthamlomology History: Denies: Hx Legally Blind EENT History: Denies: Hx Deafness Neurological History: Denies: Hx Dementia Psychiatric History: Denies: Hx Autism - Surgical History Surgery Procedure, Year, and Place: none Infectious Disease History: No Infectious Disease History: Denies: Hx Hepatitis, Hx Human Immunodeficiency Virus (HIV), Traveled Outside the [place] in Last 30 Days - Family History Known Family History: Positive: None, Other - Negative: Epilepsy - Social History Alcohol Use: None Hx Substance Use: No Substance Use Type: Reports: None Substance Use Comment - Amount & Last Used: stopped when became Hx Tobacco Use: No Smoking Status (MU): Never Smoked Tobacco Review of Systems Constitutional: Negative Eyes: Negative ENT: Negative Cardiovascular: Negative Respiratory: Negative Positive: Abdominal Pain, Vomiting, Nausea Genitourinary: Negative Musculoskeletal: Negative Skin: Negative Neurological: Negative Psychological: Normal All Other Systems Reviewed And Are Negative: Yes Physical Exam - Physical Exam Triage Information Reviewed: Yes Vital Signs Reviewed: Yes Appearance: Positive: Well-Appearing Skin: Positive: Warm Head/Face: Positive: Normal Head/Face Inspection Eyes: Positive: Normal Neck: Positive: Supple Respiratory/Lung Sounds: Positive: Clear to Auscultation Cardiovascular: Positive: Normal Abdomen Description: Positive: Nontender Musculoskeletal: Positive: Normal Neurological: Positive: Normal Psychiatric: Positive: Normal AVPU Assessment: Alert - [place] Coma Scale Eye: 4 - Spontaneous Motor: 6 - Obeys Commands Verbal: 5 - Oriented Coma Scale Total: 15 Diagnostics - Vital Signs Vital Signs Temp Pulse Resp BP Pulse Ox 09/28/18 15:45 97.9 F 68 20 116/65 100 - Laboratory Lab Results: Lab Results 09/28/18 09/28/18 Range/Units 19:12 19:12 WBC 8.2 (3.5-10.8) 10^3/uL RBC 4.20 (3.70-4.87) 10^6 /uL Hgb 13.4 (12.0-16.0) g/dL Hct 39 (33-41) % MCV 92 (80-97) fL MCH 32 H (27-31) pg MCHC 35 (31-36) g/dL RDW 14 (10.5-15) % Plt Count 223 (150-450) 10^3/uL MPV 7.5 (7.4-10.4) fL Neut % (Auto) 76.8 % Lymph % (Auto) 18.1 % [place] % (Auto) 4.4 % Eos % (Auto) 0.3 % Baso % (Auto) 0.4 % Absolute Neuts (auto) 6.3 (1.5-7.7) 10^3/ul Absolute Lymphs (auto) 1.5 (1.0-4.8) 10^3/ul Absolute Monos (auto) 0.4 (0-0.8) 10^3/ul Absolute Eos (auto) 0 (0-0.6) 10^3/ul Absolute Basos (auto) 0 (0-0.2) 10^3/ul Absolute Nucleated RBC 0 10^3/ul Nucleated RBC % 0 Sodium 136 (135-145) mmol/L Potassium 3.9 (3.5-5.0) mmol/L Chloride 105 (101-111) mmol/L Carbon Dioxide 23 (22-32) mmol/L Anion Gap 8 (2-11) mmol/L BUN 8 (6-24) mg/dL Creatinine 0.54 (0.51-0.95) mg/dL Est GFR ( Amer) 167.8 (>60) Est GFR (Non-Af Amer) 138.7 (>60) BUN/Creatinine Ratio 14.8 (8-20) Glucose 78 (70-100) mg/dL Calcium 9.2 (8.6-10.3) mg/dL Total Bilirubin 0.50 (0.2-1.0) mg/dL AST 12 L (13-39) U/L ALT 9 (7-52) U/L Alkaline Phosphatase 42 (34-104) U/L C-Reactive Protein 2.95 (<8.01) mg/L Total Protein 7.7 (6.4-8.9) g/dL Albumin 3.9 (3.2-5.2) g/dL Globulin 3.8 (2-4) g/dL Albumin/Globulin Ratio 1.0 (1-3) Lipase 21 (11.0-82.0) U/L Result Diagrams: 09/28/18 19:12 09/28/18 19:12 Lab Statement: Any lab studies that have been ordered have been reviewed, and results considered in the medical decision making process. Course/Dx - Course Course Of Treatment: Patient with history of 17 weeks followed by OB/ FIELD SUPPORT TECHNICIAN Dr. Carpio in [facility] she was told to come to the ED by her [employer] SUPER[employer]OR for further evaluation of sudden onset abdominal cramping and nausea starting last night. No active abdominal cramping here in ED. Patient has active N/V, complains of N/V since onset of with no worsening of symptoms. Denies vaginal discharge, vaginal bleeding, back pain, urinary symptoms, diarrhea, fever, cough, sore throat, CP, SOB. Medical history is none. Patient has GI 2 by mouth, history of prior miscarriage. Patient states blood type is AB-. Patient has existing prescription for Phenergan which she states she has not been taking. Patient states she has been unable to tolerate fluids or food today. Vital signs within normal limits. Physical exam unremarkable. Labs unremarkable. heart tones 140. Pelvic ultrasound indicates IUP, with marginal placenta previa. Pelvic exam deferred due to marginal placenta previa found on ultrasound. UA possible UTI. Patient started on Keflex pending culture results. Patient given a liter normal saline and Zofran IV. Follow-up with her [employer] SUPER[employer]OR. Existing Rx for Phenergan from P[employer] SUPER[employer]OR. - Diagnoses Provider Diagnoses: 14-20 weeks gestation of , Nausea & vomiting, Abdominal cramping affecting Discharge - Sign-Out/Discharge Documenting (check all that apply): Patient Departure Patient Received Moderate/Deep Sedation with Procedure: No - Discharge Plan Condition: Stable Disposition: HOME Prescriptions: Cephalexin CAP* [Keflex CAP*] 500 mg PO BID 7 Days #14 cap Patient Education Materials: Nausea and Vomiting in (ED), ( ED), Placenta Previa (ED) Referrals: Meagan Fontana [employer] [Primary Care Provider] - Additional Instructions: Tylenol for cramping. Take Phenergan for nausea. Follow up with your P[employer] SUPERVISOR Dr Carpio for further evaluation. Return to the ED for any new or worsening symptoms. - Billing Disposition and Condition Condition: STABLE Disposition: Home
[2018-09-28 20:11] LABS: Urine Appearance Cloudy; Urine Bacteria Absent (Absent); Urine Bilirubin Negative (Negative); Urine Blood Negative (Negative); Urine Color Yellow; Urine Glucose Negative (Negative); Urine Ketones 2+ (Negative); Urine Nitrite Negative (Negative); Urine Protein Negative (Negative); Urine Red Blood Cell Absent (Absent); Urine Specific Gravity 1.025 (1.010-1.030); Urine Squamous Epithelial Cell Present (Absent); Urine Urobilinogen Negative (Negative); Urine White Blood Cell 1+(6-10/hpf) (Absent)
[2018-09-28 22:52] VITALS: BP 113/52
== END | disposition home or self-care (01) ==
LOC: ED 15:40
DX: O21.0 Mild hyperemesis gravidarum (principal); O44.22 Partial placenta previa NOS or without hemorrhage, second trimester; R10.84 Generalized abdominal pain; Z3A.17 17 weeks gestation of pregnancy; Z88.8 Allergy status to other drugs, medicaments and biological substances
CPT/HCPCS: 36415; 76815; 80053; 81003; 81015; 83690; 85025; 86140; 87086; 96374; 96375; 99282; A9270-GY; J2405; J2765